=== PATIENT | male | born 1955 | race Caucasian/White ===

== ENCOUNTER → 2021-04-22 | Day surgery (SDC) | payer MEDICARE ==
[~2021-04-22] MED LIST: AMLODIPINE BESYL5 MG PO; ASPIRIN81 MG PO; CRESTOR10 MG PO; DEXAMETHASONE PHOS 24 MG/ML 10ML VIAL IV ONE; NP THYROID30 MG; OFLOXACIN 0.3% (OTIC SOL) 5 ML BTL ONE; ZETIA10 MG PO
[2021-04-22 09:05] VITALS: BP 130/78
== END | disposition home or self-care (01) ==
LOC: OR 05:26 → EDSEX 07:30
PROVIDERS: ATTEND Otolaryngology Otolaryngology/Facial Plastic Surgery
DX: H90.3 Sensorineural hearing loss, bilateral (principal); H93.11 Tinnitus, right ear; J34.2 Deviated nasal septum; I10 Essential (primary) hypertension; Z88.8 Allergy status to other drugs, medicaments and biological substances; Z91.013 Allergy to seafood; Z79.82 Long term (current) use of aspirin
CPT/HCPCS: 71046; 93005